=== PATIENT | male | born 1975 | race Caucasian/White ===

== ENCOUNTER 2018-11-13 16:58 | Emergency (ER) | payer MEDICAID ==
[~2018-11-13] VITALS: Ht 167.6 cm; Wt 76.4 kg
[~2018-11-13 16:58] MED LIST: MOTRIN
[2018-11-13] MEDS ORDERED: IBUPROFEN 600 MG TABLET PO ONE (18:15)
[2018-11-13] MEDS ORDERED: PERTUSS(ACELL),DIPH,TET VAC/PF 0.5 ML VIAL IM ONE (18:15)
[2018-11-13] MEDS ORDERED: SULFAMETHOX/TRIMETH DS 800-160 MG/TABLET PO ONE (18:15)
[2018-11-13 19:15] VITALS: BP 125/80
== END 2018-11-13 19:40 | disposition home or self-care (01) ==
LOC: EMS 16:58
DX: S60.361A Insect bite (nonvenomous) of right thumb, initial encounter (principal); W57.XXXA Bitten or stung by nonvenomous insect and other nonvenomous arthropods, initial encounter; Y93.89 Activity, other specified; Y92.89 Other specified places as the place of occurrence of the external cause; Y99.8 Other external cause status
CPT/HCPCS: 90471; 90715